=== PATIENT | female | born 1950 | race Caucasian/White ===

== ENCOUNTER → 2016-08-29 16:42 | Outpatient (CLI) | payer MEDICARE, BC ==
[2015-12-15 12:47] VITALS: BMI 40.3
[~2016-08-29 16:42] MED LIST: LASIX40 MG PO; LOVASTATIN20 MG PO; NORVASC2.5 MG PO; OSCIMIN0.125 M1 PO; PEPCID20 MG PO; PRINIVIL20 MG PO; ULTRAM50 MG PO
== END | disposition home or self-care (01) ==
LOC: D.MAMMO 13:00
DX: Z12.31 Encounter for screening mammogram for malignant neoplasm of breast (principal)

== ENCOUNTER → 2018-12-12 13:08 | Outpatient (CLI) | payer MEDICARE, BC ==
[2015-12-15 12:47] VITALS: BMI 40.3
== END | disposition home or self-care (01) ==
LOC: D.CT 13:08
PROVIDERS: ATTEND Family Medicine
DX: R10.9 Unspecified abdominal pain (principal)

== ENCOUNTER 2019-08-09 19:00 | Outpatient (CLI) | payer MEDICARE ==
[2015-12-15 12:47] VITALS: BMI 40.3
== END 2019-08-09 23:59 | disposition home or self-care (01) ==
LOC: D.MAMMO 19:00
PROVIDERS: ATTEND Specialist
DX: Z12.31 Encounter for screening mammogram for malignant neoplasm of breast (principal)

== ENCOUNTER → 2019-08-16 12:29 | Outpatient (CLI) | payer MEDICARE ==
[2015-12-15 12:47] VITALS: BMI 40.3
== END | disposition home or self-care (01) ==
LOC: D.US 12:29
PROVIDERS: ATTEND Family Medicine
DX: R92.8 Other abnormal and inconclusive findings on diagnostic imaging of breast (principal)

== ENCOUNTER → 2019-08-28 11:21 | Outpatient (CLI) | payer MEDICARE ==
[2015-12-15 12:47] VITALS: BMI 40.3
== END | disposition home or self-care (01) ==
LOC: D.CT 11:21
PROVIDERS: ATTEND Family Medicine
DX: R31.9 Hematuria, unspecified (principal)